=== PATIENT | female | born 1980 | race Caucasian/White ===

== ENCOUNTER 2018-03-08 07:49 | Inpatient (IN) | payer OTHER ==
[2018-03-08] MEDS ORDERED: BUTORPHANOL 2 MG INJ IV (08:30)
[2018-03-08] MEDS ORDERED: MISOPROSTOL 200 MCG TAB PR (08:30)
[2018-03-08] MEDS ORDERED: OXYTOCIN 30 UNITS/LR 500 ML IV (08:30)
[2018-03-08] MEDS ORDERED: CARBOPROST 250 MCG INJ IM (08:30)
[2018-03-08] MEDS ORDERED: IBUPROFEN 600 MG TAB PO (08:30)
[2018-03-08] MEDS ORDERED: LIDOCAINE 1% (MPF) 30 ML INJ INJ (08:30)
[2018-03-08 10:04] LABS: ADD MAN DIFF? NO
[2018-03-08 10:09] LABS: BASOPHILS % 0.2 % (0.0-2.0); EOSINOPHILS # 0.1 10^3/ul (0.0-0.5); EOSINOPHILS % 1.1 % (0.0-7.0); HEMOGLOBIN 9.4 g/dl (12.0-16.0); LYMPHOCYTES # 1.9 10^3/ul (0.8-2.9); LYMPHOCYTES % 30.1 % (15.0-51.0); MEAN CORPUSCULAR HEMOGLOBIN 30.3 pg (29.0-33.0); MEAN CORPUSCULAR HGB CONC 32.4 g/dl (32.0-37.0); MEAN CORPUSCULAR VOLUME 93.5 fl (82.0-101.0); MEAN PLATELET VOLUME 10.9 fl (7.4-10.4); MONOCYTE # 0.3 10^3/ul (0.3-0.9); MONOCYTES % 5.3 % (0.0-11.0); NEUTROPHIL # 3.9 10^3/ul (1.6-7.5); NEUTROPHILS % 62.2 % (39.0-77.0); PLATELET COUNT 159 10^3/UL (140-415); RED CELL DISTRIBUTION WIDTH 15.6 % (11.5-14.5)
[2018-03-08 10:09] LABS: WHITE BLOOD COUNT 6.3 10^3/ul (4.8-10.8)
[2018-03-08 10:37] LABS: INR 0.93; PROTIME 12.6 Sec (11.9-14.9)
[2018-03-08] MEDS: LACTATED RINGER'S 1,000 ML IV ×2 (10:43→15:49)
[2018-03-08] MEDS: OXYTOCIN 30 UNITS/LR 500 ML IV ×4 (10:45→22:51)
[2018-03-08 11:58] LABS: HEPATITIS B SURFACE ANTIGEN NEGATIVE (NEGATIVE)
[2018-03-08] MEDS ORDERED: ONDANSETRON 4 MG INJ IV ×2 (15:30→23:00)
[2018-03-08] MEDS ORDERED: NALOXONE (0.4 MG/ML) INJ IV (15:30)
[2018-03-08] MEDS ORDERED: DIPHENHYDRAMINE 50 MG INJ IV (15:30)
[2018-03-08] MEDS ORDERED: KETOROLAC 30 MG INJ IV (15:30)
[2018-03-08] MEDS ORDERED: ZOLPIDEM 5 MG TAB PO (15:30)
[2018-03-08] MEDS ORDERED: HYDROmorphONE 0.5 MG/0.5 ML SYG IV ×2 (15:30)
[2018-03-08] MEDS ORDERED: FENTAnyl 2MCG/ML-ROPIV 0.2% 100 ML BAG EPI (15:30)
[2018-03-08 16:14] LABS: RAPID PLASMA REAGIN NONREACTIVE (NR)
[2018-03-08] MEDS: METHYLERGONOVINE 0.2 MG INJ IM (21:34)
[2018-03-08] MEDS: SENNA/DOCUSATE NA (8.6MG/50MG) TAB PO (23:00)
[2018-03-08] MEDS ORDERED: ACETAMINOPHEN 325 MG TAB PO (23:00)
[2018-03-08] MEDS ORDERED: OXYCODONE/ASPIRIN (4.88/325) TAB PO ×2 (23:00)
[2018-03-08] MEDS ORDERED: HYDROCODONE/APAP (5/325) TAB PO ×2 (23:00)
[2018-03-08] MEDS: LANOLIN HPA 1 PKT TOP (23:25)
[2018-03-08] MEDS: IBUPROFEN 600 MG TAB PO (23:25)
[2018-03-08] MEDS: WITCH HAZEL/GLYCERIN PAD PR (23:27)
[2018-03-08] MEDS: BENZOCAINE 20% 56 ML SPRAY TOP (23:27)
[2018-03-09] MEDS: LACTATED RINGER'S 1,000 ML IV ×3 (04:06→20:00)
[2018-03-09] MEDS: IBUPROFEN 600 MG TAB PO ×4 (05:50→23:57)
[2018-03-09 09:04] LABS: ADD MAN DIFF? NO
[2018-03-09 09:05] LABS: WHITE BLOOD COUNT 10.7 10^3/ul (4.8-10.8)
[2018-03-09 09:05] LABS: BASOPHILS % 0.2 % (0.0-2.0); EOSINOPHILS # 0.1 10^3/ul (0.0-0.5); EOSINOPHILS % 0.7 % (0.0-7.0); HEMATOCRIT 32.3 % (37.0-47.0); HEMOGLOBIN 10.6 g/dl (12.0-16.0); LYMPHOCYTES # 2.4 10^3/ul (0.8-2.9); LYMPHOCYTES % 22.7 % (15.0-51.0); MEAN CORPUSCULAR HEMOGLOBIN 30.8 pg (29.0-33.0); MEAN CORPUSCULAR HGB CONC 32.8 g/dl (32.0-37.0); MEAN CORPUSCULAR VOLUME 93.9 fl (82.0-101.0); MEAN PLATELET VOLUME 11.1 fl (7.4-10.4); MONOCYTE # 0.5 10^3/ul (0.3-0.9); MONOCYTES % 4.9 % (0.0-11.0); NEUTROPHIL # 7.6 10^3/ul (1.6-7.5); NEUTROPHILS % 70.8 % (39.0-77.0); PLATELET COUNT 159 10^3/UL (140-415); RED BLOOD COUNT 3.44 10^6/ul (4.20-5.40); RED CELL DISTRIBUTION WIDTH 15.4 % (11.5-14.5)
[2018-03-09] MEDS: PRENATAL VITAMIN PO (09:49)
[2018-03-09] MEDS: SENNA/DOCUSATE NA (8.6MG/50MG) TAB PO ×2 (09:49→21:00)
[2018-03-09] MEDS: FOLIC ACID 1 MG TAB PO (09:49)
[2018-03-10] MEDS: LACTATED RINGER'S 1,000 ML IV (04:00)
[2018-03-10] MEDS: IBUPROFEN 600 MG TAB PO ×2 (05:44→12:02)
[2018-03-10] MEDS: MEASLES,MUMPS,RUBELLA VACCINE INJ SC* (08:10)
[2018-03-10] MEDS: PRENATAL VITAMIN PO (09:11)
[2018-03-10] MEDS: FOLIC ACID 1 MG TAB PO (09:11)
[2018-03-10] MEDS: SENNA/DOCUSATE NA (8.6MG/50MG) TAB PO (09:11)
[2018-03-10] MEDS: WITCH HAZEL/GLYCERIN PAD PR (12:03)
[2018-03-10] MEDS: BENZOCAINE 20% 56 ML SPRAY TOP (12:03)
[2018-03-10] MEDS: LANOLIN HPA 1 PKT TOP (12:07)
== END 2018-03-10 15:47 | disposition home or self-care (01) | DRG 807 ==
LOC: L-D 07:49 → PP1 22:29
PROVIDERS: Obstetrics & Gynecology
PROC: 10D07Z6 Extraction of Products of Conception, Vacuum, Via Natural or Artificial Opening (ICD-10-PCS; principal; 2018-03-08 08:00)
PROC: 0HQ9XZZ Repair Perineum Skin, External Approach (ICD-10-PCS; 2018-03-08 08:00)
PROC: 4A1HXCZ Monitoring of Products of Conception, Cardiac Rate, External Approach (ICD-10-PCS; 2018-03-08 08:00)
DX: O76 Abnormality in fetal heart rate and rhythm complicating labor and delivery (principal); Z37.0 Single live birth; O70.0 First degree perineal laceration during delivery; O69.1XX0 Labor and delivery complicated by cord around neck, with compression, not applicable or unspecified; O75.81 Maternal exhaustion complicating labor and delivery; Z3A.39 39 weeks gestation of pregnancy
CPT/HCPCS: 62319; 76815; 85025; 85610; 85730; 86592; 86850; 86900; 86901; 87340; 99464